=== PATIENT | female | born 1960 | race Caucasian/White ===

== ENCOUNTER 2016-08-20 13:19 | Emergency (ER) | payer MEDICAID ==
[~2016-08-20] VITALS: Ht 162.6 cm; Wt 136.1 kg
[~2016-08-20 13:19] MED LIST: APAP PO; ATIVAN1 MG PO; BUTALB PO; HYZAAR 12.5 MG-1 TA1 PO; LOPID600 MG PO; [UNRECOGNIZED DRUG - CODE] PO
[2016-08-20 13:23] VITALS: BP 160/97
--- NOTE | 2016-08-20 14:51 | NUR ---
Pt ambulated to bed 8.
--- NOTE | 2016-08-20 14:58 | NUR ---
56/F presents to ED for evaluation of left shoulder pain since Thursday, 4 days ago. Patient states "I went to see my doctor on Thursday and they just told me it was muscle pain. They gave me Tylenol and muscle relaxers." Patient also states "I feel dizzy and nauseous from the pain." Pt describes the pain as aching, constant, severe, 10/10 unrelieved by medications she was prescribed. Patient denies any trauma, fall or injury to left arm, states the pain was a sudden onset. Patient is AOX4, ambulatory with steady gait. VSS.
--- NOTE | 2016-08-20 15:10 | NUR ---
Dr. Weeks evaluating patient at bedside.
[2016-08-20] MEDS ORDERED: KETOROLAC 60 MG/2 ML VIAL IM ONE (15:15)
--- NOTE | 2016-08-20 15:25 | NUR ---
X-Ray at bedside.
--- NOTE | 2016-08-20 15:58 | NUR ---
Patient states improvement of pain 12/13, but c/o severe nausea, denies vomiting and no vomiting noted. Dr. Weeks made aware of patient's status.
[2016-08-20] MEDS ORDERED: ONDANSETRON 4 MG ODT PO ONE (16:00)
--- NOTE | 2016-08-20 16:08 | NUR ---
Dr. Weeks re-evaluating patient at bedside.
--- NOTE | 2016-08-20 16:21 | NUR ---
Dr. Weeks made aware of patient's temperature of 100.9 temporal and no further orders recieved. Dr. Weeks stated "Her white count is normal, she is okay to go."
[2016-08-20 16:40] VITALS: BP 139/71
--- NOTE | 2016-08-20 16:40 | NUR ---
Chart checked and completed. The patient's care was reviewed and supervised by Sara Smith RN.
--- NOTE | 2016-08-20 16:40 | NUR ---
Patient discharged with v/s stable. Written and verbal after care instructions given and explained. Patient alert, oriented and verbalized understanding of instructions. Ambulatory with steady gait. All questions addressed prior to discharge. ID band removed. Patient advised to follow up with PMD. Rx of ZOFRAN,TYLENOL WITH COD given. Patient educated on indication of medication including possible reaction and side effects. Opportunity to ask questions provided and answered.
== END 2016-08-20 16:40 | disposition home or self-care (01) ==
LOC: MED 13:27
DX: S46.912A Strain of unspecified muscle, fascia and tendon at shoulder and upper arm level, left arm, initial encounter (principal); E66.01 Morbid (severe) obesity due to excess calories; Z68.43 Body mass index [BMI] 50.0-59.9, adult; X58.XXXA Exposure to other specified factors, initial encounter; Y93.89 Activity, other specified; Y92.89 Other specified places as the place of occurrence of the external cause; Y99.8 Other external cause status
CPT/HCPCS: 36415; 71010; 73030; 80053; 85025; 96372; 99285; J1885; Q0092; S0119